=== PATIENT | female | born 1985 | race Caucasian/White ===

== ENCOUNTER 2025-04-30 09:40 | Emergency (ER) | payer OTHER, SELFPAY ==
--- OUTSIDE RECORDS SUMMARY | 2025-04-28 23:59 | XMS_ITS | Continuity of Care Document ---
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 Role Phone Ren AGLICIA, Dulce Primary Care [id number] Date(s): 12/29/24 - 04/28/25 [facility] [address] [place] [phone]- Attending Physician: Bladimir Gonzalez MD Admitting Physician: Bladimir Gonzalez MD Referring Physician: Richy Lizama Encounter Type: Pre-OutPatient One Time Allergies, Adverse Reactions, Alerts No Known Medication Allergies Immunizations Given and Recorded Vaccine Date Status Refusal Reason SARS-CoV-2 (COVID-19) mRNA-1273 vaccine 11/02/20 R ecorded SARS-CoV-2 (COVID-19) mRNA-1273 vaccine 10/04/20 R ecorded Influenza Virus Vaccine (oldterm) 04/06/20 Recorde d Medications Carafate 1 gm oral tablet 1 Gm, 1, tablet, By Mouth, 4 times a day, # 120 tablet, Refills 0, Tot. Refills 0, Maintenance, 09/22/24 11:37:00 AM EDT, Route to Pharmacy Electronically, [facility]/pharmacy #[id number], Partial fill upon patient request if the prescription is for a schedule II opioid drug., 173, cm, 09/22/24 11:00:00 EDT, Height, 83.5, kg, 06/19/23 17:21:00 EST, Dry Weight Start Date: 09/22/24 Status: Ordered Medication Dispense Status: Completed Quantity: 120.0 Unit: tablet Total Allowed Fills: 1 Fills Dispensed: 0 citalopram 40 mg oral tablet 1 tablet, By Mouth, Daily, # 90 tablet, 2 Refills, [id number], 167.64, cm, 01/20/20 9:54:00 EDT, Height, 78.18, kg, 12/16/19 10:39:00 EDT, Dry Weight Start Date: 03/29/21 Status: Ordered Medication Dispense Status: Completed Quantity: 90.0 Unit: tablet Total Allowed Fills: 1 Fills Dispensed: 0 escitalopram 5 mg oral tablet 1 tablet = 5 mg, By Mouth, Daily, # 30 tablet, 0 Refills, Maintenance, 09/22/24 11:04:00 AM EDT, Tablet, Partial fill upon patient request if the prescription is for a schedule II opioid drug. Start Date: 09/22/24 Status: Ordered Medication Dispense Status: Completed Quantity: 30.0 Unit: tablet Total Allowed Fills: 1 Fills Dispensed: 0 famotidine 20 mg oral tablet 20 mg, 1, tablet, By Mouth, Daily, # 14 tablet, Refills 0, Tot. Refills 0, Maintenance, 06/19/23 10:52:00 PM EST, Route to Pharmacy Electronically, [facility]/pharmacy #[id number], Partial fill upon patient request if the prescription is for a schedule II opioid drug., 173, cm, 06/19/23 17:21:00 EST, Height, 83.5, kg, 06/19/23 17:21:00 EST, Dry Weight Start Date: 06/19/23 Stop Date: 07/03/23 Status: Ordered Medication Dispense Status: Completed Quantity: 14.0 Unit: tablet Total Allowed Fills: 1 Fills Dispensed: 0 hydrOXYzine hydrochloride 10 mg oral tablet 0 Refills, Maintenance, 09/22/24 11:05:00 AM EDT, Partial fill upon patient request if the prescription is for a schedule II opioid drug. Start Date: 09/22/24 Status: Ordered Medication Dispense Status: Completed Total Allowed Fills: 1 Fills Dispensed: 0 omeprazole 20 mg oral enteric coated capsule 1 capsule = 20 mg, By Mouth, Daily, # 60 capsule, 2 Refills, Maintenance, 01/23/22 12:33:00 PM EDT, [id number] new instructions Start Date: 01/23/22 Status: Ordered Medication Dispense Status: Completed Quantity: 60.0 Unit: capsule Total Allowed Fills: 3 Fills Dispensed: 0 promethazine 12.5 mg oral tablet 1 tablet, By Mouth, 2 times a day, PRN NEEDED FOR NAUSEA/VOMITING, # 40 tablet, 1 Refills, Maintenance, 03/08/25 3:21:00 PM EDT, [facility] #[id number], 173, cm, 09/22/24 11:00:00 EDT, Height, 83.5, kg, 06/19/23 17:21:00 EST, Dry Weight Start Date: 03/08/25 Status: Ordered Medication Dispense Status: Completed Quantity: 40.0 Unit: tablet Total Allowed Fills: 2 Fills Dispensed: 0 Super-Strength D-5000 oral tablet TAKE 1 TABLET BY MOUTH EVERY DAY Start Date: 09/22/24 Status: Ordered Medication Dispense Status: Completed Total Allowed Fills: 1 Fills Dispensed: 0 Tri-Estarylla triphasic 35 mcg oral tablet TAKE 1 TABLET BY MOUTH EVERY DAY Start Date: 09/22/24 Status: Ordered Medication Dispense Status: Completed Total Allowed Fills: 1 Fills Dispensed: 0 Problem List Condition Confirmation Course Effective Dates Status H ealth Status Informant Anemia Confirmed Active Anxiety disorder Confirmed Active Colitis, Clostridium difficile Confirmed Active Cyst of ovary Confirmed Active Diarrheal stools Confirmed Active Epigastric pain Confirmed Active History of Clostridium difficile colitis Confirmed Active S/P cholecystectomy Confirmed Active Personal history of COVID-19 Confirmed Active Cervical high risk HPV (human papillomavirus) test positive Confirmed Active Iron deficiency anemia Confirmed Active Nausea Confirmed Active Nausea and vomiting in adult Confirmed Active Obese class I Confirmed Active Healthcare maintenance Confirmed Active Family planning Confirmed Active Patient Care team information Care Team Personnel Name: Harriet Luo MA Position: [facility] Outreach Member Role: Lifetime Consulting Physician Name: Dulce Mcclure NP Position: [facility] Outreach Member Role: PCP Address: [address] [place] [address] [facility] [place], [place] [address] Telecom: Care Team Related Persons Name: JESUS GUZMAN Insurance Providers Guarantor name: CHELY GUZMAN Health Plan Information #: 1 Payer: [facility] Payer Identifier: SUSAN Member Number: [id number] Group Number: [id number] Subscriber Identifier: [id number] Relationship to Subscriber: self Coverage Type: Medicaid (Managed Care) Coverage Verification Date: SUSAN Telecom: SUSAN Address:
--- NOTE | ~2025-04-30 | XR_ITS ---
CLINICAL HISTORY: back pain into chest 2 view chest x-ray. Comparison: None Findings: Normal lung volumes. Lungs are clear. No pneumothorax or pleural effusion. Heart size normal. No passive venous congestion. No midline shift or tracheal deviation. No acute fracture. Impression: 1. No acute cardiopulmonary disease. This document has been electronically signed by: Ruben Hwang MD on 04/30/2025 12:48:22
[2025-04-30 09:42] VITALS: BP 128/77; PULSE 85; RESP 18; TEMP 36.7; O2SAT 98; BMI 34.2
--- NOTE | 2025-04-30 09:45 | ECG_ITS ---
Test Reason : back pain into chest Blood Pressure : */* mmHG Vent. Rate : 89 BPM Atrial Rate : 89 BPM P-R Int : 132 ms QRS Dur : 80 ms QT Int : 320 ms P-R-T Axes : 30 12 -2 degrees QTcB Int : 389 ms Normal sinus rhythm Cannot rule out Anterior infarct , age undetermined Abnormal ECG No previous ECGs available Referred By: Generic ED Physician Electronically Signed By: RADHA IVORY
[2025-04-30 10:21] LABS: MANUAL DIFF FLAG NO
[2025-04-30 10:24] LABS: Hematocrit 37.7 % (37.0-47.0); Hemoglobin 11.9 g/dl (12.0-16.0); Imm Gran Abs Auto 0.02 X10*3/uL (0.00-0.03); Imm Gran Pct Auto 0.3 % (0.0-0.4); Lymphocytes Absolute Auto 1.3 X10*3/uL (1.2-4.9); Mean Corpuscular HGB Conc 31.6 g/dl (31.0-35.0); Mean Corpuscular Hemoglobin 25.4 pg (27.0-33.0); Mean Corpuscular Volume 80.6 fL (80.0-98.0); NRBC Abs Auto 0.000 X10*3/uL (0.0-0.012); NRBC Pct Auto 0.0 /100WBC (0.0-0.2); Platelet Count 260 X10*3/uL (160-400); Red Blood Count 4.68 X10*6/uL (4.20-5.50); White Blood Count 5.8 X10*3/uL (4.8-10.8)
[2025-04-30 10:34] LABS: INTERNATIONAL NORM RATIO 1.0 (0.9-1.1); Prothrombin Time 12.6 SEC (11.2-13.5)
[2025-04-30 10:36] LABS: Partial Thromboplastin Time 30.9 SEC (26.7-34.1)
[2025-04-30 10:42] LABS: Anion Gap 12 (12-20); Blood Urea Nitrogen 8 mg/dL (9-16); Calcium 8.9 mg/dL (8.4-10.2); Carbon Dioxide 24 mmol/L (22-29); Chloride 109 mmol/L (96-108); Creatinine Clr Calc Pharmacy 127.3; Estimated Glomerular Filt Rate > 60; Potassium 3.8 mmol/L (3.3-5.1); Sodium 141 mmol/L (135-145)
[2025-04-30 11:00] LABS: Troponin-I High Sensitivity < 2.7 ng/L (<3.5-17.0)
--- OUTSIDE RECORDS SUMMARY | 2025-04-30 11:26 | XMS_ITS | Encounter Summary ---
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 Role Phone Keren Garza MD Primary Care Provide r Encounter Details Date Type Department Care Team (Latest Contact Info) Description 10/11/2020 Transcribe Orders Virtual Department [address] [place] [phone] Augustin Sams MD [address] [place] [phone] [email or web address] Pre-procedure lab exam (Primary Dx) Social History Tobacco Use Types Packs/Day Years Used Date Smoking Tobacco: Never Assessed Comments Unknown Sex and Gender Information Value Date Recorded Sex Assigned at Not on file Legal Sex Female 5:24 PM EDT Gender Identity Not on file Sexual Orientation Not on file documented as of this encounter Plan of Treatment Not on file documented as of this encounter Results * COVID-19 PCR Order (10/15/2020 11:15 AM EDT) COVID-19 Comment [id number] [facility] COVID Testing Status Sent to [facility] Micro Lab [facility] 10/15/2020 11:1 5 AM EDT 10/15/2020 12:54 PM EDT us Augustin Sams MD LAB GENERAL ORDERABLES Final R esult [facility] [address] [place] [address] documented in this encounter Visit Diagnoses Diagnosis Pre-procedure lab exam- Primary Pre-procedural laboratory examination documented in this encounter Care Teams Brush Maker Machine Relationship Specialty Start Date End Date Keren Garza MD [address] [phone] PCP - General Internal Medicine 10/13/20 documented as of this encounter Additional Source Comments The information contained in this document represents components of the legal health record. It is not the complete legal health record.[facility]
--- OUTSIDE RECORDS SUMMARY | 2025-04-30 11:26 | XMS_ITS | Clinical Summary ---
Author Organization [facility] Address [address] [phone] Phone Care Team Providers Care General Counsel Name Role Phone Keren Garza MD Primary Care Provide Social History Tobacco Use Types Packs/Day Years Used Date Smoking Tobacco: Never Assessed Education Answer Date Recorded Are you interested in more education? Not on stephania e 09/27/2022 Are you concerned about learning? Not on file 09/27/2022 No 09/27/2022 No 09/27/2022 Digital Access Answer Date Recorded No 10/28/2022 No 10/28/2022 Reliable internet access at home? Not on file 10/28/2022 Device with a working camera? Not on file Comments Unknown Sex and Gender Information Value Date Recorded Sex Assigned at Not on file Legal Sex Female 5:24 PM EDT Gender Identity Not on file Sexual Orientation Not on file Plan of Treatment Not on file Medical Devices Not on [place] [address] [place] [address] [employer] [facility] [employer] [employer] [place] [address] [place] [address] [place] [address] [place] [address] [address] [place] [address] [employer] [facility] [employer] Care Teams General Counsel Relationship Specialty Start Date End Date Keren Garza MD [address] [place] [phone] PCP - General Internal Medicine 10/13/20 Additional Source Comments The information contained in this document represents components of the legal health record. It is not the complete legal health record.[facility]
--- OUTSIDE RECORDS SUMMARY | 2025-04-30 11:26 | XMS_ITS | Clinical Summary ---
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 Role Phone Diamond Lua MD Primary Care Provider Social History Tobacco Use Types Packs/Day Years Used Date Smoking Tobacco: Never Assessed Comments Unknown Sex and Gender Information Value Date Recorded Sex Assigned at Not on file Legal Sex Female 6:54 AM EST Gender Identity Not on file Sexual Orientation Not on file Plan of Treatment Health Maintenance Due Date Last Done Comments DTaP,Tdap,and Td Vaccines (1 - Tdap) 2006 Hepatitis B Vaccines (1 of 3 - 19+ 3-dose series) 2006 Cervical Cancer Screening: P ap Smear 2008 HPV Vaccines (1 - 3-dose SCD M series) 2014 HIV Screening 05/04/2022 Hepatitis C Screening 05/04/2022 Social Influencers of Health Screening 05/04/2022 Depression Screening 06/01/2024 COVID-19 Vaccine (1 - 2024-2 6 season) 2025 Influenza Vaccine (#1) 2025 , 02/11/2018, 02/25/2017 RSV Immunization Adult Patients (1 - 1-dose 75+ series) 2062 HIB Vaccines Aged Out No longer eligi ble based on patient's age to complete this topic Hepatitis A Vaccines Aged Out No long er eligible based on patient's age to complete this topic IPV Vaccines Aged Out No longer eligi ble based on patient's age to complete this topic MMR Vaccines Aged Out No longer eligi ble based on patient's age to complete this topic Meningococcal ACWY Vaccine Aged Out N o longer eligible based on patient's age to complete this topic Meningococcal B Vaccine Aged Out No l onger eligible based on patient's age to complete this topic Pneumococcal Vaccine: Pediatrics (0 to 5 Years) and At-Risk Patients (6 to 49 Years) Aged Out No longer eligible b ased on patient's age to complete this topic RSV Immunization Patients Under 20 months Aged Out No longer eligible b ased on patient's age to complete this topic Varicella Vaccines Aged Out No longer eligible based on patient's age to complete this topic Care Teams Music Executive Relationship Specialty Start Date End Date Diamond Lua MD PCP - General Internal Medicine 11/19/16
[2025-04-30 11:28] VITALS: BP 118/89; PULSE 76; RESP 16; TEMP 36.2; O2SAT 95
--- NOTE | 2025-04-30 12:39 | ED_ITS ---
HPI - Back Pain/Injury General Chief Complaint: Back Pain/Injury Stated Complaint: injury Time Seen by Provider: 04/30/25 11:56 Source: patient and family (Spouse) Mode of arrival: ambulatory Limitations: no limitations History of Present Illness ED Provider: Dr. Freddy Brian HPI Narrative: 40-year-old female with no significant past medical history who presents emergency department for evaluation of right upper back pain radiating to her right chest which began at 04:30 hours while the patient was in bed. Patient describes the pain as a tightness which is worse with breathing and with movement. Pain does radiate to her right chest. She denies neck pain, fever, chills, cough, shortness of breath, dyspnea on exertion, pain or swelling in her lower extremities. The patient is not on control pills or taking estrogen supplements. She has not gone on any long trips recently. This has her 1st episode of this type of pain. She states that the pain is severe in his 12/08 at its worst. Patient did take ibuprofen 800 mg orally with no relief for pain. Related Data Previous Rx's ?Medication ?Instructions ?Recorded cyclobenzaprine 10 mg tablet 10 mg PO TID PRN pain, mu scle 04/30/25 spasm #15 tabs Allergies Allergy/AdvReac Type Severity Reaction Status Date / Time No Known Allergies Allergy Verified 04/30/25 09:44 Review of Systems 2 Review of Systems: Yes all other systems are reviewed and are negative COUNTS INCLUDE 234 BEDS AT THE [facility] Social History Social History Smoked in Last 30 Days: No Use of substances other than those prescribed or required for medical reasons: No Advance Directives: No Advance Directives Information Provided: No Patient : No (tubal done) Physical Exam 2 Vital Signs: Vital Signs: Last Vital Signs Temp 97.2 F 04/30/25 12:51 Pulse 76 04/30/25 12:51 Resp 16 04/30/25 12:51 BP 118/89 04/30/25 12:51 Pulse Ox 95 04/30/25 12:51 O2 Del Method Room Air 04/30/25 12:51 BMI result Body Mass Index 34.2 Vital signs were normal Exam: General: Awake, alert in no distress Head: Normocephalic, atraumatic EENT: PERRL, sclera and conjunctiva are normal, mouth with no erythema or exudates Neck: Supple, no adenopathy Lung: breath sounds symmetric, no wheezing, no rales and no rhonchi Chest: symmetric movement, nontender Heart: regular rate and rhythm, normal S1, S2 no murmurs or rubs Abdomen: soft, non-tender, nondistended, normal bowel sounds Back: no vertebral tenderness, mild to moderate tenderness palpation of her muscles around her right scapula and right shoulder Extremities: no deformities, moves all extremities symmetrically, no edema Neuro: Awake, alert, oriented, normal speech, cranial nerves 2-12 intact, moves all extremities symmetrically Psych: Pleasant, cooperative Medications Administered Discontinued Medications Generic Name Dose Route Start Last Admin Trade Name Freq PRN Reason Stop Dose Admin Cyclobenzaprine HCl 10 mg 04/30/25 12:39 04/30/25 12:45 Cyclobenzaprine Hcl 10 Mg Tablet PO 04/30/25 12:40 10 mg ONCE ONE Administration Medical Decision Making Medical Decision Making [facility] Narrative: 40-year-old female with no significant past medical history who presents emergency department for evaluation of 12/08, right upper back pain radiating to her right chest, worse with movement and breathing which began at 04:30 hours while the patient was in bed. Patient took 800 mg of ibuprofen with no relief for pain. Review of systems was negative. Vital signs were normal. Physical examination did reveal tenderness palpation of her right upper back around your scapular area as well as tenderness palpation of the right shoulder. Differential diagnosis: ?Includes but is not limited to myocardial infarction, myocardial ischemia, pneumonia, bronchitis, pleurisy, pulmonary embolism, musculoskeletal strain/sprain, anemia, electrolyte abnormalities Course: My independent interpretation patient's laboratory evaluation is as follows: CBC was normal. CMP revealed an elevated glucose of 139. Troponin was below detectable limits.Chest x-ray revealed no acute findings. Twelve EKG was unremarkable. Patient was PERC negative. Patient's symptoms are most likely 2nd food to musculoskeletal injury of her upper back and right shoulder. I did discuss this with the patient and the patient's . Patient was advised to take Tylenol and ibuprofen for pain. She was also given prescription for Flexeril 10 mg 3 times a day as needed for pain and spasm. She was given a dose of Flexeril 10 mg orally prior to discharge. Differential Diagnosis Differential Diagnoses: The differential diagnosis associated with the presentation includes (See above) Admission/Observation Consideration of admission/observation: Escalation of care including admission/observation considered (Yes) Lab Data MDM Lab Attestation statement: I reviewed the patient's lab results. 04/30/25 10:04 04/30/25 10:04 Labs: Lab Results 04/30/25 Range/Units 10:04 WBC 5.8 (4.8-10.8) X10*3/uL RBC 4.68 (4.20-5.50) X10*6/uL Hgb 11.9 L (12.0-16.0) g/dl Hct 37.7 (37.0-47.0) % MCV 80.6 (80.0-98.0) fL MCH 25.4 L (27.0-33.0) pg MCHC 31.6 (31.0-35.0) g/dl RDW 13.9 (11.0-16.0) % Plt Count 260 (160-400) X10*3/uL MPV 10.5 (9.4-12.3) fL Immature Gran % (Auto) 0.3 (0.0-0.4) % Neut % (Auto) 70.3 (45-73) % Lymph % (Auto) 22.9 (20-40) % [place] % (Auto) 5.0 (2-11) % Eos % (Auto) 1.2 (0-4) % Baso % (Auto) 0.3 (0-2) % Lymph # (Auto) 1.3 (1.2-4.9) X10*3/uL [place] # (Auto) 0.3 (0.1-1.2) X10*3/uL Eos # (Auto) 0.1 (0.0-0.4) X10*3/uL Baso # (Auto) 0.0 (0.0-0.2) X10*3/uL Abs Immat Gran (auto) 0.02 (0.00-0.03) X10*3/uL Absolute Neuts (auto) 4.1 (2.0-8.3) x10*3/uL Absolute Nucleated RBC 0.000 (0.0-0.012) X10*3/uL Nucleated RBC % (auto) 0.0 (0.0-0.2) /100WBC PT 12.6 (11.2-13.5) SEC INR 1.0 (0.9-1.1) APTT 30.9 (26.7-34.1) SEC Sodium 141 (135-145) mmol/L Potassium 3.8 (3.3-5.1) mmol/L Chloride 109 H (96-108) mmol/L Carbon Dioxide 24 (22-29) mmol/L Anion Gap 12 (12-20) BUN 8 L (9-16) mg/dL Creatinine 0.70 (0.5-1.4) mg/dL Estim Creat Clear Calc 127.3 Estimated GFR > 60 Random Glucose 139 H (60-115) mg/dL Calcium 8.9 (8.4-10.2) mg/dL Troponin I High Sens < 2.7 (<3.5-17.0) ng/L Independent Interpretation I performed an independent interpretation of an: EKG and Plain X-Ray Interpretation: My independent interpretation patient's 12 EKG done on 04/30/2025 at 09:56 hours is as follows: There is artifact in the baseline which makes the EKG difficult to interpret. The patient has a normal sinus rhythm with a rate of 89, normal NE interval, QRS duration and QTC interval, no ST segment elevation, no ST segment depression, no significant T-wave abnormalities, no PACs, no PVCs, poor R-wave progression V1 through V3. No old EKG for comparison My independent interpretation of the patient's two view chest x-ray is as follows: No acute disease Radiology Impression Discussion of test interpretation with radiology: I have reviewed the radiologist's reading. Radiologist Impression: 2 view chest x-ray. Comparison: None Findings: Normal lung volumes. Lungs are clear. No pneumothorax or pleural effusion. Heart size normal. No passive venous congestion. No midline shift or tracheal deviation. No acute fracture. Impression: 1. No acute cardiopulmonary disease. This document has been electronically signed by: Ruben Hwang MD on 04/30/2025 12:48:22 Independent Historian Clinical information obtained from an independent historian. History obtained from or confirmed by: Spouse Prescription Management I considered prescription management with: Other (I prescribed anti spasmodic, Flexeril 10 mg TID PRN pain, spasm) Discharge Plan Discharge Clinical Impression: Muscle strain of right shoulder region, Strain of thoracic back region Patient Disposition: Home, Self-Care Instructions: Muscle Strain (ED) Additional Instructions: You had a complete blood count which was normal You had a comprehensive metabolic panel was normal except for a slightly high glucose (blood sugar) of 139. Normal is 60-100. I do not think that you have diabetes at this time, sometimes pain can cause your sugar to be high. I want you to follow up with your primary care doctor when you feeling better to get repeat blood work including a hemoglobin A1c. Your electrical picture of your heart (EKG) was normal. Your chest x-ray was unremarkable. Your exam is consistent with a an injury to the muscles of your shoulder and right upper back. Apply ice for 15 minutes 4 to 6 times a day for the next 3 days then after that you can apply heating pad on low for 15 minutes 4 to 6 times a day. Take ibuprofen 200 mg pills, 2 pills every 6 hours as needed for pain or fever. Take Tylenol (acetaminophen) 500 mg pills, 2 pills every 6 hours as needed for pain or fever. Take Flexeril (cyclobenzaprine) 10 mg pills, 1 pill every 6-8 hours as needed for pain or spasm. ?This medication will make you sleepy. ?Do not drive or work while taking this medication. Please see the return to work note Follow-up with your doctor in 2 days. Please return to the emergency department if your symptoms get worse or if you develop any symptoms that are concerning to you. Prescriptions: New cyclobenzaprine 10 mg tablet 10 mg PO TID PRN (Reason: pain, muscle spasm) Qty: 15 0RF Stand Alone Forms: Work/School Release Interventions: ED Discharge Assessment Last Done: 04/30/25 12:51 Discharge Date/Time: 04/30/25 12:53 Print Language: Chinese
[2025-04-30 12:51] VITALS: BP 118/89; PULSE 76; RESP 16; TEMP 36.2; O2SAT 95
== END 2025-04-30 12:53 | disposition home or self-care (01) ==
PROVIDERS: Emergency Provider Emergency Medicine Emergency Medical Services
DX: S46.811A Strain of other muscles, fascia and tendons at shoulder and upper arm level, right arm, initial encounter (principal); S39.012A Strain of muscle, fascia and tendon of lower back, initial encounter; X58.XXXA Exposure to other specified factors, initial encounter; Y93.89 Activity, other specified; Y92.89 Other specified places as the place of occurrence of the external cause; Y99.8 Other external cause status
CPT/HCPCS: 36415; 71046; 80048; 84484; 85025; 85610; 85730; 93005; 99283; 99285

== ENCOUNTER → 2025-04-30 09:45 | Outpatient (BNV) | payer OTHER, SELFPAY | PROVIDERS: Emergency Provider Emergency Medicine Emergency Medical Services; Visit Provider Internal Medicine | DX: R94.31 Abnormal electrocardiogram [ECG] [EKG] (principal); R07.9 Chest pain, unspecified | CPT/HCPCS: 93010 ==

== ENCOUNTER → 2025-04-30 09:46 | Outpatient (BNV) | payer OTHER, SELFPAY | PROVIDERS: Emergency Provider Emergency Medicine Emergency Medical Services; Visit Provider Radiology Diagnostic Radiology | DX: R07.9 Chest pain, unspecified (principal) | CPT/HCPCS: 71046 ==